=== PATIENT | male | born 1970 | race Caucasian/White ===

== ENCOUNTER → 2019-07-23 | Emergency (ER) | payer MEDICARE, OTHER ==
[~2019-07-23] VITALS: Ht 185.4 cm; Wt 86.2 kg
[~2019-07-23] MED LIST: DIAZEPAM 5 MG TAB PO PRN; HYDROCODONE/APAP 10MG-325MG TAB PO NR; KETOROLAC TROMETHAMINE 60 MG/2 ML VIAL ONE
--- OUTSIDE RECORDS SUMMARY | 2019-07-23 12:00 | XMS REPORT ---
[facility] Address Unknown Phone Unavailable Care Team Providers Care Trauma Therapist Name Role Phone Unavailable Unavailable Payers Payer Name Policy Type Policy Number Effective Date Expiration Date Problems This patient has no known problems. Allergies, Adverse Reactions, Alerts Allergy Name Allergy Type Status Severity Reaction(s) Onset Date Inactive Date Treating Clinician Comments No Known Allergies DA Active U 2019-02-10 00:00:00 Medications This patient has no known medications. Results Test Description Test Time Test Comments Text Results Atomic Results Result Comments LACTIC ACID 2019-02-10 15:54:00 LACTIC ACID (test code=LACT) 1.0 mmol/L 0.4-1.9 02/10/19 1416 PROCALCITONIN (PCT)2019-02-10 14:31:00* Test Item Value Reference Range Comments PROCALCITONIN (PCT) (test code=PROCAL) 0.06 ng/ml Concentration Interpretation (ng/mL) <0.51 Sepsis is not likely. Local bacterial infection is possible. (LOW RISK for progression to Sepsis) 0.51 - 2.00 Sepsis is possible, but other conditions are known to elevate PCT as well. (MODERATE RISK for progression to Sepsis) > 2.00 Sepsis is likely, unless other causes are known. (HIGH RISK for progression to Severe Sepsis or Septic Shock) 10.00 High likelihood of Severe Sepsis or Septic or higher Shock. *Increased PCT levels may not always be related to systemic bacterial infection.*Low PCT levels do not automatically exclude the presence of bacterial infection.*All results should be interpreted taking into account the patients history. B-TYPE NATRIURETIC [id number] 14:24:00* Test Item Value Reference Range Comments B-TYPE NATRIURETIC PEPTIDE (test code=BNP) 6.27 pgram/mL 0-100 URINALYSIS [id number] 14:20:00* Test Item Value Reference Range Comments UA COLOR (test code=COLU) LIGHT YELLOW YELLOW UA APPEARANCE (test code=APPU) CLEAR CLEAR UA GLUCOSE DIPSTICK (test code=DGLUU) NEGATIVE mg/dL NEGATIVE UA BILIRUBIN DIPSTICK (test code=BILU) NEGATIVE mg/dL NEGATIVE UA KETONE DIPSTICK (test code=KETU) Negative mg/dL NEGATIVE UA SPECIFIC GRAVITY (test code=SGU) 1.015 1.001-1.035 UA BLOOD DIPSTICK (test code=NILTON) Negative NEGATIVE UA PH DIPSTICK (test code=BRIANNA) 7.0 5.0-8.0 UA PROTEIN DIPSTICK (test code=PROU) Negative mg/dL NEGATIVE UA UROBILINIOGEN DIPSTICK (test code=URO) NEGATIVE mg/dL NEGATIVE UA NITRITE DIPSTICK (test code=NEETA) NEGATIVE NEGATIVE UA LEUKOCYTE ESTERASE W REFLEX (test code=LEUUR) NEGATIVE NEGATIVE UA WBC (test code=WBCU) 0-5 #/HPF 0-5 UA RBC (test code=RBCU) 0-2 #/HPF 0-5 UA BACTERIA (test code=BACU) MODERATE #/HPF NONE Urine Source? Clean CatchLACTIC [id number] 14:15:00* Test Item Value Reference Range Comments LACTIC ACID (test code=LACT) 2.0 mmol/L 0.4-1.9 Results called to [id number] by MargaritoLABJU 02/10/19 1415Critical results verified and read back by Nurse? Y URINALYSIS [id number] 14:14:00* Test Item Value Reference Range Comments UA COLOR (test code=COLU) LIGHT YELLOW YELLOW UA APPEARANCE (test code=APPU) CLEAR CLEAR UA GLUCOSE DIPSTICK (test code=DGLUU) NEGATIVE mg/dL NEGATIVE UA BILIRUBIN DIPSTICK (test code=BILU) NEGATIVE mg/dL NEGATIVE UA KETONE DIPSTICK (test code=KETU) Negative mg/dL NEGATIVE UA SPECIFIC GRAVITY (test code=SGU) 1.015 1.001-1.035 UA BLOOD DIPSTICK (test code=NILTON) Negative NEGATIVE UA PH DIPSTICK (test code=BRIANNA) 7.0 5.0-8.0 UA PROTEIN DIPSTICK (test code=PROU) Negative mg/dL NEGATIVE UA UROBILINIOGEN DIPSTICK (test code=URO) NEGATIVE mg/dL NEGATIVE UA NITRITE DIPSTICK (test code=NEETA) NEGATIVE NEGATIVE UA LEUKOCYTE ESTERASE W REFLEX (test code=LEUUR) NEGATIVE NEGATIVE UA WBC (test code=WBCU) per HPF 0-5 Urine Source? Clean CatchBASIC METABOLIC [id number] 14:14:00* Test Item Value Reference Range Comments SODIUM (test code=NA) 139 mmol/L 136-145 POTASSIUM (test code=K) 4.6 mmol/L 3.5-5.1 CHLORIDE (test code=CL) 103.0 mmol/L 98-107 CARBON DIOXIDE (test code=CO2) 28.0 mmol/L 21-32 ANION GAP (test code=GAP) 12.6 10-20 GLUCOSE (test code=GLU) 96 mg/dL 74-106 BLOOD UREA NITROGEN (test code=BUN) 13 mg/dL 7-18 GLOMERULAR FILTRATION RATE (test code=GFR) > 60 mL/min >=60 Estimated GFR by using Modified MDRD formula.Chronic kidney disease is defined as either kidney damageor GFR <60 mL/min/1.73 m2 for >3 months. CREATININE (test code=CREAT) 1.00 mg/dL 0.7-1.3 BUN/CREATININE RATIO (test code=BUN/CREA) 13.5 10-20 CALCIUM (test code=CA) 8.5 mg/dL 8.5-10.1 HEPATIC FUNCTION [id number] 14:14:00* Test Item Value Reference Range Comments TOTAL PROTEIN (test code=PROT) 8.2 gram/dL 6.4-8.2 ALBUMIN (test code=ALB) 3.7 g/dL 3.4-5.0 GLOBULIN (test code=GLOB) 4.5 gram/dL 2.7-4.2 ALBUMIN/GLOBULIN RATIO (test code=A/G) 0.8 0.75-1.50 BILIRUBIN TOTAL (test code=BILT) 0.40 mg/dL 0.0-1.0 BILIRUBIN DIRECT (test code=BILD) 0.10 mg/dL 0.0-0.20 SGOT/AST (test code=AST) 25 IUnit/L 15-37 SGPT/ALT (test code=ALT) 34 IUnit/L 12-78 ALKALINE PHOSPHATASE TOTAL (test code=ALKP) 101 IUnit/L 45-117 Note change in reference range due to change in reagent. [id number] 14:14:00* Test Item Value Reference Range Comments LIPASE (test code=LIP) 166 U/L 73.0-393.0 [id number] 14:14:00* Test Item Value Reference Range Comments TROPONIN-I (test code=TROPI) <0.015 ng/mL 0-0.045 - XR CHEST 1 [id number] 14:11:00 FAX: Savannah Blanca MD [phone] [place]: St: PRE Name: Alec GARCIAMARYCRUZ [facility] : [birth year] Age/S: 48/M [address] [facility] Unit #: [id number] Loc: [place] [address] Phys: Savannah Blanca MD Acct: [id number] Dis Date: Status: PRE ER PHONE #: [phone] Exam Date: 02/10/2019 1351 FAX #: [phone] Reason: CODE SEPSIS EXAMS: CPT CODE: [id number] XR CHEST 1 V 11812 HISTORY: Sepsis. COM PARISON: None available. No acute infiltrates, effusion or congest ion is noted. COPD and scarring. The cardiac and mediastinal silhouette are within normal limits. IMPRESSION: No acute infiltrates, effusion or congestion. COPD and scarring. at 1411 Reported and signed by: Luis Alberto Palomo M.D. CC: Savannah Blanca MD Technologist: Damon ESPINOZA(R) Trnscrd Date/Time/By: 02/10/2019 ([id number]) : By: [email or web address] Orig Print D/T: S: 02/10/2019 ([id number]) PAGE 1 Signed Report BASIC METABOLIC [id number] 14:05:00* Test Item Value Reference Range Comments SODIUM (test code=NA) 139 mmol/L 136-145 POTASSIUM (test code=K) 4.6 mmol/L 3.5-5.1 CHLORIDE (test code=CL) 103.0 mmol/L 98-107 CARBON DIOXIDE (test code=CO2) mmol/L 21-32 ANION GAP (test code=GAP) 10-20 GLUCOSE (test code=GLU) mg/dL 74-106 BLOOD UREA NITROGEN (test code=BUN) mg/dL 7-18 GLOMERULAR FILTRATION RATE (test code=GFR) mL/min >=60 CREATININE (test code=CREAT) mg/dL 0.7-1.3 BUN/CREATININE RATIO (test code=BUN/CREA) 10-20 CALCIUM (test code=CA) mg/dL 8.5-10.1 HEPATIC FUNCTION [id number] 14:05:00* Test Item Value Reference Range Comments TOTAL PROTEIN (test code=PROT) gram/dL 6.4-8.2 ALBUMIN (test code=ALB) g/dL 3.4-5.0 GLOBULIN (test code=GLOB) gram/dL 2.7-4.2 ALBUMIN/GLOBULIN RATIO (test code=A/G) 0.75-1.50 BILIRUBIN TOTAL (test code=BILT) mg/dL 0.0-1.0 BILIRUBIN DIRECT (test code=BILD) mg/dL 0.0-0.20 SGOT/AST (test code=AST) IUnit/L 15-37 SGPT/ALT (test code=ALT) IUnit/L 12-78 ALKALINE PHOSPHATASE TOTAL (test code=ALKP) IUnit/L 45-117 [id number] 14:05:00* Test Item Value Reference Range Comments LIPASE (test code=LIP) U/L 73.0-393.0 [id number] 14:05:00* Test Item Value Reference Range Comments TROPONIN-I (test code=TROPI) ng/mL 0-0.045 CBC W/AUTO [id number] 13:52:00* Test Item Value Reference Range Comments WHITE BLOOD CELL (test code=WBC) 17.0 K/mm3 4.5-12.5 RED BLOOD CELL (test code=RBC) 4.54 mill/mm3 4.0-5.8 HEMOGLOBIN (test code=HGB) 13.6 gram/dL 13.0-17.5 HEMATOCRIT (test code=HCT) 44.2 % 42.0-52.0 MEAN CELL VOLUME (test code=MCV) 97.4 fL 80-98 MEAN CELL HGB (test code=MCH) 30.0 picogram 27.0-33.0 MEAN CELL HGB CONCETRATION (test code=MCHC) 30.8 gram/dL 33.0-36.0 RED CELL DISTRIBUTION WIDTH (test code=RDW) 12.7 % 11.6-16.2 RED CELL DISTRIBUTION WIDTH SD (test code=RDW-SD) 45.2 fL 37.0-51.0 PLATELET COUNT (test code=PLT) 230 K/mm3 150-450 MEAN PLATELET VOLUME (test code=MPV) 8.9 fL 6.7-11.0 NEUTROPHIL % (test code=NT%) 80.0 % 39.0-69.0 IMMATURE GRANULOCYTE % (test code=IG%) 0.8 % 0.0-5.0 LYMPHOCYTE % (test code=LY%) 10.1 % 25.0-55.0 MONOCYTE % (test code=MO%) 5.7 % 0.0-10.0 EOSINOPHIL % (test code=EO%) 2.9 % 0.0-5.0 BASOPHIL % (test code=BA%) 0.5 % 0.0-1.0 NUCLEATED RBC % (test code=NRBC%) 0.0 % 0-0 NEUTROPHIL # (test code=NT#) 13.58 K/mm3 1.8-7.7 IMMATURE GRANULOCYTE # (test code=IG#) 0.13 x10 3/uL 0-0.03 LYMPHOCYTE # (test code=LY#) 1.71 K/mm3 1.0-5.0 MONOCYTE # (test code=MO#) 0.96 K/mm3 0-0.8 EOSINOPHIL # (test code=EO#) 0.49 K/mm3 0.0-0.5 BASOPHIL # (test code=BA#) 0.08 K/mm3 0.0-0.2 NUCLEATED RBC # (test code=NRBC#) 0.00 K/mm3 0.0-0.1 CBC W/AUTO [id number] 13:51:00* Test Item Value Reference Range Comments WHITE BLOOD CELL (test code=WBC) K/mm3 4.5-12.5 RED BLOOD CELL (test code=RBC) mill/mm3 4.0-5.8 HEMOGLOBIN (test code=HGB) 13.6 gram/dL 13.0-17.5 HEMATOCRIT (test code=HCT) 44.2 % 42.0-52.0 MEAN CELL VOLUME (test code=MCV) fL 80-98 MEAN CELL HGB (test code=MCH) picogram 27.0-33.0 MEAN CELL HGB CONCETRATION (test code=MCHC) gram/dL 33.0-36.0 RED CELL DISTRIBUTION WIDTH (test code=RDW) % 11.6-16.2 RED CELL DISTRIBUTION WIDTH SD (test code=RDW-SD) fL 37.0-51.0 PLATELET COUNT (test code=PLT) K/mm3 150-450 MEAN PLATELET VOLUME (test code=MPV) fL 6.7-11.0 NEUTROPHIL % (test code=NT%) % 39.0-69.0 IMMATURE GRANULOCYTE % (test code=IG%) % 0.0-5.0 LYMPHOCYTE % (test code=LY%) % 25.0-55.0 MONOCYTE % (test code=MO%) % 0.0-10.0 EOSINOPHIL % (test code=EO%) % 0.0-5.0 BASOPHIL % (test code=BA%) % 0.0-1.0 NEUTROPHIL # (test code=NT#) K/mm3 1.8-7.7 LYMPHOCYTE # (test code=LY#) K/mm3 1.0-5.0 MONOCYTE # (test code=MO#) K/mm3 0-0.8 EOSINOPHIL # (test code=EO#) K/mm3 0.0-0.5 BASOPHIL # (test code=BA#) K/mm3 0.0-0.2
[2019-07-23] MEDS: HYDROCODONE/APAP 10MG-325MG TAB PO ONE (12:20)
[2019-07-23] MEDS: KETOROLAC TROMETHAMINE 60 MG/2 ML VIAL IM ONE (12:28)
--- NOTE | 2019-07-23 13:49 | Diagnostic Imaging Report ---
Exam: RIBS series and PA chest History: Status post fall several days ago, pain in right posterior lower rib cage Comparison: None. Findings: There is normal bone mineralization. Acute, displaced fracture of the posterior aspect of the right 11th rib, with fracture fragment separation of approximately 7 mm. Other bony structures are intact. Lungs are clear. Cardiomediastinal silhouette is unremarkable. Pulmonary vasculature is normal Impression: 1. Acute, displaced fracture of the posterior aspect of the right 11th rib. Signed by: Dr. Germain Sutton M.D. on 07/23/2019 1:45 PM
== END | disposition home or self-care (01) ==
LOC: ER 11:59
DX: S22.31XA Fracture of one rib, right side, initial encounter for closed fracture (principal); S20.221A Contusion of right back wall of thorax, initial encounter; W07.XXXA Fall from chair, initial encounter; Y92.009 Unspecified place in unspecified non-institutional (private) residence as the place of occurrence of the external cause
CPT/HCPCS: 71101; 99283; J1885